=== PATIENT | female | born 2000 | race African-American/Black ===

== ENCOUNTER 2020-02-20 22:06 | Emergency (ER) | payer OTHER, SELFPAY ==
[2020-02-20 22:25] VITALS: BP 128/82; PULSE 87; RESP 18; TEMP 36.9; O2SAT 97; BMI 38.0
--- NOTE | 2020-02-20 22:39 | PC.NURSE ---
PT HERE WITH LUMP UNDER CHIN ? SWOLLEN LYMPH NODE. [place] REPORTS SOME KIND OF PLATE IN MOUTH AFTER DENTAL EXTRACTION OF WISDOM TOOTH. STATES ITS CUTTING HER GUM.
--- NOTE | 2020-02-20 22:42 | ED.GENADULT ---
HPI - General Adult General Chief complaint: General Medical Stated complaint: chin swelling Time Seen by Provider: 02/20/20 22:42 Source: patient Mode of arrival: ambulatory Limitations: no limitations History of Present Illness HPI narrative: patient noticed small lump under the chin for last 2 days which is tender now no skin discoloration no dental caries patient also complaining of right earache no fever no other lymph node enlarged Related Data Allergies Allergy/AdvReac Type Severity Reaction Status Date / Time ibuprofen [IBUPROFEN] Allergy Intermediate LIP Unverified 11/30/19 19:36 SWELLING shrimp [SHRIMP] Allergy Unknown UNKNOWN Unverified 11/30/19 19:36 Review of Systems Review of Systems: Yes all other systems are reviewed and are negative PMFSH Past Medical History Medical History Asthma Social History Social History Advance Directives: No Advance Directives Information Provided: No Physical Exam Vital Signs: Vital Signs: Last Vital Signs Temp 98.4 F 02/20/20 22:25 Pulse 87 02/20/20 22:25 Resp 18 02/20/20 22:25 BP 128/82 02/20/20 22:25 Pulse Ox 97 02/20/20 22:25 Body Mass Index 38.0 Const: General: cooperative, healthy appearing, comfortable and no acute distress Orientation/consciousness: patient oriented x3 HENMT: Head: Yes normal to inspection Ears: hearing grossly normal bilaterally and TM's normal bilaterally General nose exam: Normal external nose present and Normal nasal mucous membranes and turbinates present Face and sinus: Yes normal facial exam Mouth: Normal oral and palatal mucosa present, lip normal, oropharynx normal and moist mucous membranes Teeth and gingiva: dentition normal and gingiva normal Throat: Yes posterior oropharynx normal Neck: Other: small sub mandibular lymph node enlarged 1x1 cm with normal skin , no signs of infection Resp: Effort & Inspection: normal respiratory effort Neuro: General: patient oriented x3 Discharge Plan Discharge Clinical Impression: Lymphadenopathy, anterior cervical Patient Disposition: Home, Self-Care Instructions: Adenitis (ED) Additional Instructions: take Tylenol for pain. Report to the ER/ PCP if increased redness or increased swelling with pain at this time there is no signs of infection
[2020-02-20] MEDS: Acetaminophen 325 MG TABLET 650 MG PO (23:04)
== END 2020-02-20 23:33 | disposition home or self-care (01) ==
PROVIDERS: Emergency Provider Internal Medicine
DX: L04.0 Acute lymphadenitis of face, head and neck (principal)
CPT/HCPCS: 99283

== ENCOUNTER 2020-06-21 10:16 | Outpatient (REF) | payer OTHER, SELFPAY ==
[2020-06-21 13:33] LABS: CT PCR NOT DETECTED (Not Detect.); NG PCR NOT DETECTED (Not Detect.)
== END 2020-06-21 10:17 | disposition home or self-care (01) ==
LOC: HO.LAB 10:16
PROVIDERS: Visit Provider Advanced Practice Midwife
DX: Z01.419 Encounter for gynecological examination (general) (routine) without abnormal findings (principal); Z11.3 Encounter for screening for infections with a predominantly sexual mode of transmission; Z20.2 Contact with and (suspected) exposure to infections with a predominantly sexual mode of transmission; E66.01 Morbid (severe) obesity due to excess calories; Z68.41 Body mass index [BMI] 40.0-44.9, adult
CPT/HCPCS: 87491; 87591

== ENCOUNTER 2022-07-22 11:35 | Emergency (ER) | payer OTHER, SELFPAY ==
[2022-07-22 12:31] VITALS: BP 128/75; PULSE 88; RESP 18; TEMP 36.6; O2SAT 99; BMI 42.5
--- NOTE | 2022-07-22 12:31 | ED.GENADULT ---
HPI - General Adult General Chief complaint: General Medical Stated complaint: Sore Breasts ? Time Seen by Provider: 07/22/22 13:21 Source: patient Mode of arrival: ambulatory Limitations: no limitations History of Present Illness HPI narrative: 21 yo female presents to the ER for evaluation of bilateral breast soreness that she noticed yesterday. She also reports some mild lower back pain and increased urinary frequency. No dysuria, nausea, vomiting, abdominal pain, vaginal bleeding. LMP 4/5 and she ususally gets it on the 5th of each month. She has not taken a test at home. She has never been before. complaint: bilateral breast soreness Onset (ago): day(s) (1) Location: chest Radiation: non-radiation Severity: moderate Quality: aching Pain Consistency: constant Relieving factors: none Exacerbating factors: none Associated symptoms: other (LBP, urinary frequency) Treatments prior to arrival: none Related Data Previous Rx's Medication Instructions Recorded vitamin with calcium 1 tab PO DAILY #30 tabs 06/21/20 no.72-iron 27 mg-folic acid 1 mg tablet ( Vitamins Plus Low Iron) vit no.95-ferrous 1 tab PO DAILY #30 tabs 07/22/22 fumarate 28 mg-folic acid 800 mcg tablet () Allergies Allergy/AdvReac Type Severity Reaction Status Date / Time ibuprofen [IBUPROFEN] Allergy Intermediate LIP Verified 06/21/20 10:28 SWELLING shrimp [SHRIMP] Allergy Unknown UNKNOWN Verified 06/21/20 10:28 Review of Systems Review of Systems: Yes all other systems are reviewed and are negative PMFSH Past Medical History Medical History Asthma Morbid obesity with body mass index (BMI) of 40.0 to 44.9 in adult (Unknown) Surgical History Hx of wisdom tooth extraction Social History Social History Advance Directives: No Advance Directives Information Provided: Yes Physical Exam ED Vital Signs: Vital Signs - 24 hr 07/22/22 12:31 Temperature 97.9 F Pulse Rate 88 Respiratory Rate 18 Blood Pressure 128/75 Pulse Oximetry 99 Oxygen Delivery Method Room Air BMI result Body Mass Index 42.5 Appearance: Alert. Oriented X3. No acute distress. Head: normocephalic, atraumatic. Neck: Normal inspection. Respiratory: No respiratory distress. normal inspection chest wall Abdomen: Soft and nontender. +BS x4 Skin: Skin warm and dry. Normal skin color. Normal skin turgor. No rashes. Extremities: No lower extremity edema. No joint swelling. Neuro/psych: Oriented X 3. nonfocal CN II-XII intact. Normal speech and cognition. Course Course Course Narrative: RME - 21 yo female presents to the ER for evaluation of sore breasts that started yesterday. She reports some lower back pain. LMP 06/17/22 and reports regular periods. Plan: UA and Upreg Medical Decision Making Medical Decision Making [facility] Narrative: 21 yo female presenting with breast soreness x1 day in the setting of missed period. +Upreg in triage. UA contaminated. VSS. Patient counseled about early . 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 all questions were answered. Differential Diagnosis Differential Diagnoses: The differential diagnosis associated with the presentation includes , UTI, mastitis Lab Data [facility] Lab Attestation statement: I reviewed the patient's lab results. Labs: Lab Results 07/22/22 07/22/22 Range/Units 12:42 12:42 Urine Color Yellow Urine Appearance Cloudy Urine pH 6.5 (5.0-9.0) Ur Specific [place] 1.025 (1.005-1.025) Urine Protein Negative (Neg-Trace) mg/dL Urine Glucose (UA) Negative (Negative) mg/dL Urine Ketones 40 (Negative) mg/dL Urine Blood Negative (Negative) Urine Nitrite Negative (Negative) Ur Leukocyte Esterase Moderate (2+) H (Negative) Urine RBC 0-2 (0-2) /HPF Urine WBC 0-5 (0-5) /HPF Ur Squamous Epith Cells >20 (0-2) /HPF Urine Bacteria 3+ (None Seen) Hyaline Casts 0-2 (0-2) /LPF Urine Test POSITIVE H (NEGATIVE) External Record Review External record reviewed: Prior outpatient labs Prescription Management I considered prescription management with: Other ( vitamin) Chronic Conditions Patient?s care impacted by: Other (obesity) Critical Care Time Critical Care Time Critical Care Time: No Discharge Plan Discharge Clinical Impression: Patient Disposition: Home, Self-Care Instructions: (ED) Additional Instructions: Your urine test showed you are . Call your [employer] to arrange follow up. Start the prescribed vitmain. If you develop new or worsening symptoms call 911 or come back to the ER for further evaluation. Prescriptions: New PNV cmb#95-ferrous fumarate-FA [] 28 mg iron- 800 mcg tablet 1 tab PO DAILY Qty: 30 0RF No Action Vitamin Plus Low Iron 27 mg iron- 1 mg tablet 1 tab PO DAILY Qty: 30 11RF Interventions: ED Discharge Assessment Last Done: 07/22/22 13:22
[2022-07-22 12:59] LABS: Appearance Urine Cloudy; Color Urine Yellow; Glucose Urine UA Negative (Negative); Leukocyte Esterase Urine Moderate (2+) (Negative); Nitrite Urine Negative (Negative); PH 6.5 (5.0-9.0); Specific Gravity - Urine 1.025 (1.005-1.025); UMIC TRIGGER UACC YES; Urine Blood Negative (Negative); Urine Ketones 40 mg/dL (Negative); Urine Protein Negative (Neg-Trace)
[2022-07-22 13:00] LABS: Urine Pregnancy POSITIVE (NEGATIVE)
[2022-07-22 13:01] LABS: UPreg QC Valid YES
[2022-07-22 13:12] LABS: Hyaline Casts Urine 0-2 /LPF (0-2); RBC Urine 0-2 /HPF (0-2); Squamous Epithelial Cell Urine >20 /HPF (0-2); WBC Urine 0-5 /HPF (0-5)
[2022-07-22 13:13] LABS: Bacteria Urine 3+ (None Seen)
== END 2022-07-22 14:17 | disposition home or self-care (01) ==
PROVIDERS: Physician Assistant; Emergency Provider Emergency Medicine Emergency Medical Services
DX: N64.4 Mastodynia (principal); Z33.1 Pregnant state, incidental
CPT/HCPCS: 81001; 81025; 99282

== ENCOUNTER 2022-07-28 10:52 | Outpatient (REF) | payer OTHER, SELFPAY ==
[2022-07-28 11:45] LABS: HCG Quantitative 6579 mIU/mL
== END 2022-07-28 10:53 | disposition home or self-care (01) ==
LOC: HO.LAB 10:52
PROVIDERS: Visit Provider Advanced Practice Midwife
DX: O20.0 Threatened abortion (principal)
CPT/HCPCS: 36415; 84702

== ENCOUNTER 2022-07-28 13:36 | Outpatient (REF) | payer OTHER, SELFPAY ==
--- NOTE | ~2022-07-28 | US_ITS ---
EXAMINATION: US OBSTETRICAL ULTRASOUND CLINICAL INFORMATION: Threatened . Bleeding in first trimester. COMPARISON: None available. LMP: 06/17/2022. Gestational age by maternal dates is 5 weeks 6 days. Estimated date of delivery by maternal dates is 03/24/2022. TECHNIQUE: Transabdominal and transvaginal first trimester OB ultrasound. Transvaginal exam was performed for better visualization of the gestational sac. FINDINGS: The uterus measures 7.9 x 4.2 x 4.6 cm in dimension. There is an intrauterine gestational sac and yolk sac. Sac diameter measures 1 cm which would suggest gestational age of 5 weeks 5 days. No pole is seen. The cervix is normal appearing. The ovaries are normal. The right ovary measures 3.5 x 1.9 x 1.6 cm. Left ovary measures 3.2 x 3.3 x 2.9 cm. There is a small amount of fluid in the pelvis. US/US OB pelvic and transvaginal IMPRESSION: Intrauterine gestational sac and yolk sac. No pole seen. This may be due to early gestational age. Mean sac diameter suggests gestational age of 5 weeks 5 days.
== END 2022-07-28 13:37 | disposition home or self-care (01) ==
LOC: HO.US 13:36
PROVIDERS: Visit Provider Advanced Practice Midwife
DX: O20.0 Threatened abortion (principal)
CPT/HCPCS: 76801; 76817; 81003; 99212

== ENCOUNTER 2022-07-28 15:26 | Outpatient (REF) | payer OTHER, SELFPAY ==
[2022-07-29 08:57] LABS: CT PCR NOT DETECTED (Not Detect.); NG PCR NOT DETECTED (Not Detect.)
[2022-07-29 10:12] LABS: BV Int Neg Control Negative (Negative); BV Int Pos Control Positive (Positive)
== END 2022-07-28 15:27 | disposition home or self-care (01) ==
LOC: HO.LNP 15:26
PROVIDERS: Visit Provider Advanced Practice Midwife
DX: O20.9 Hemorrhage in early pregnancy, unspecified (principal)
CPT/HCPCS: 0353U; 87480; 87510; 87660

== ENCOUNTER 2022-08-04 14:44 | Outpatient (REF) | payer OTHER, SELFPAY | END 2022-08-04 14:45 | disposition home or self-care (01) | LOC: HO.US 14:44 | PROVIDERS: Visit Provider Advanced Practice Midwife | DX: Z13.89 Encounter for screening for other disorder (principal) ==

== ENCOUNTER 2022-08-11 09:21 | Outpatient (REF) | payer OTHER, SELFPAY ==
--- NOTE | ~2022-08-11 | US_ITS ---
EXAMINATION: US OBSTETRICAL ULTRASOUND CLINICAL INFORMATION: Hemorrhage in early . Followup to study of 07/28/2022. COMPARISON: 07/28/2022 LMP: 06/17/2022 Gestational age by maternal dates is 7 weeks 6 days. Estimated date of delivery by maternal dates is 03/24/2023. TECHNIQUE: OB ultrasound, transvaginal. FINDINGS: There is a single intrauterine gestational sac with visible yolk sac, embryo/fetus, and cardiac activity. There is a small amount of echogenic debris seen within the gestational sac of uncertain significance. A small subchorionic hematoma is seen to the right of the gestational sac and is less than 10% of the size of the gestational sac. HR: 150 beats per minute. CRL (crown rump length): 1.02 cm (7 weeks 1 day +/- 4 days). JEANNINE (estimated date of delivery): 03/29/2023 +/- 4 days. MATERNAL ADNEXA: The right maternal ovary measures 3.2 x 1.7 x 1.8 cm. No right adnexal abnormality appreciated. Normal vascular flow. The left maternal ovary measures 2.9 x 2.4 x 2.1 cm. There is a heterogeneous echogenic 1.4 x 1.1 x 1.5 cm structure in the left ovary consistent with corpus luteal cyst. There is no significant maternal adnexal mass. There is a small amount of free fluid seen about the left adnexa. US/US OB pelvic and transvaginal IMPRESSION: 1. Single intrauterine gestation with ultrasound gestational age of 7 weeks 1 day +/- 4 days. 2. Estimated date of delivery is 03/29/2023 +/- 4 days. 3. No suspicious maternal adnexal mass.
== END 2022-08-11 09:22 | disposition home or self-care (01) ==
LOC: HO.US 09:21
PROVIDERS: Visit Provider Advanced Practice Midwife
DX: O20.0 Threatened abortion (principal); O20.9 Hemorrhage in early pregnancy, unspecified
CPT/HCPCS: 76801; 76817

== ENCOUNTER → 2022-08-13 07:55 | Outpatient (BNVA) | payer OTHER, SELFPAY | PROVIDERS: Visit Provider Advanced Practice Midwife ==

== ENCOUNTER 2023-01-19 15:30 | Emergency (ER) | payer OTHER, SELFPAY ==
[2023-01-19 15:38] VITALS: BP 128/77; PULSE 102; RESP 20; TEMP 36.6; O2SAT 98; BMI 38.1
--- NOTE | 2023-01-19 15:38 | ED_ITS ---
HPI - General Adult General Chief complaint: Upper Respiratory Symptoms Stated complaint: ?Larygitis Time Seen by Provider: 01/19/23 16:26 Source: patient Mode of arrival: ambulatory Limitations: no limitations History of Present Illness HPI narrative: Patient is a 22-year-old female presenting to emergency department for evaluation of sore throat, losing voice over the past week. Took an at-home COVID-19 test which was negative. Denies fevers, chills, difficulty swallowing, inability to tolerate oral intake, nausea, vomiting, abdominal pain. Denies any known sick contacts. Related Data Home Medications Medication Instructions Recorded Confirmed metronidazole 500 mg tablet 500 mg PO BID 08/13/22 Previous Rx's Medication Instructions Recorded vit no.95-ferrous 1 tab PO DAILY #30 tabs 07/22/22 fumarate 28 mg-folic acid 800 mcg tablet () penicillin V potassium 500 mg 500 mg PO BID #20 tabs 01/19/23 tablet Allergies Allergy/AdvReac Type Severity Reaction Status Date / Time ibuprofen [IBUPROFEN] Allergy Intermediate LIP Verified 08/13/22 07:56 SWELLING shrimp [SHRIMP] Allergy Unknown UNKNOWN Verified 08/13/22 07:56 Review of Systems Review of Systems: Yes all other systems are reviewed and are negative PMFSH Past Medical History Attestation statement: The following information was validated with the patient. Source: old records reviewed Medical History Bleeding in early Adopted First trimester bleeding Morbid obesity with body mass index (BMI) of 40.0 to 44.9 in adult (Unknown) Asthma Surgical History Hx of wisdom tooth extraction Social History Social History Advance Directives: No Advance Directives Information Provided: No Physical Exam ED Vital Signs: Vital Signs - 24 hr 01/19/23 15:38 Temperature 97.9 F Pulse Rate 102 H Respiratory Rate 20 Blood Pressure 128/77 Pulse Oximetry 98 Oxygen Delivery Method Room Air BMI result Body Mass Index 38.1 Appearance: Alert.?Oriented to person, place and time. No acute distress.?Normal affect. Eyes: Pupils equal, round and reactive to light.? ENT: Pharynx erythematous, white exudates. No tonsillar hypertrophy. Uvula midline. No trismus. No drooling. ? Neck: Normal inspection.? Neck supple.??No cervical lymphadenopathy. CVS: Heart sounds normal. Normal heart rate and rhythm.? Pulses normal.?? Respiratory: No respiratory distress.? Lung sounds clear to auscultation bilaterally?? Abdomen: Soft and non-tender. Normoactive bowel sounds. Skin: Skin warm and dry.? Normal skin color.?? Extremities: No lower extremity edema.? Neuro: Moves all extremities spontaneously. Sensation intact bilaterally. Amb ulates with normal steady gait. Course Course Course Narrative: RME performed by Darlin Mitchell PA-C. Patient is a 22 year old assigned female at presenting to the emergency department after losing her voice. Swabs ordered. Patient placed back in the waiting room pending room availability and results. Medical Decision Making Medical Decision Making [facility] Narrative: Patient is a 22-year-old female with past medical history of asthma, presenting for evaluation of sore throat. Strep a testing is positive; strep pharyngitis laryngitis COVID-19 testing negative. Influenza testing negative. At this time history and physical exam not consistent with peritonsillar retropharyngeal abscess, Thee's angina, pneumonia. Well-appearing, nontoxic, afebrile, no tachycardia or tachypnea/hypoxia. Speaking full sentences, ambulatory with steady gait. Discussed conservative treatment including rest, hydration, Tylenol/ibuprofen as needed for fever and body aches, saline nasal spray, humidifier, [id number] cold medication. Advised to follow-up with primary care provider as needed, discussed reasons to return back to the emergency department. All questions were answered. Patient discharged home in stable condition. Differential Diagnosis Differential Diagnoses: The differential diagnosis associated with the presen tation includes (As noted above) Lab Data [facility] Lab Attestation statement: I reviewed the patient's lab results. (As noted above) Labs: Lab Results 01/19/23 Range/Units 16:04 Influenza Type A (PCR) NEGATIVE (Negative) Influenza Type B (PCR) NEGATIVE (Negative) RSV RNA Qual (PCR) NEGATIVE (Negative) SARS-CoV-2 RNA (RT-PCR) NEGATIVE (Negative) S. pyogenes GrpA MISSY Positive A (Negative) External Record Review External record reviewed: Outpatient record Tests considered The following testing was considered but not selected: Considered CT soft tissue neck to exclude peritonsillar/retropharyngeal abscess, physical examination not consistent, imaging deferred Prescription Management I considered prescription management with: Antibiotic Discharge Plan Discharge Clinical Impression: Acute streptococcal pharyngitis Patient Disposition: Home, Self-Care Instructions: Strep Throat (ED) Prescriptions: New penicillin V potassium 500 mg tablet 500 mg PO BID Qty: 20 0RF No Action PNV cmb#95-ferrous fumarate-FA [] 28 mg iron- 800 mcg tablet 1 tab PO DAILY Qty: 30 0RF metronidazole 500 mg tablet 500 mg PO BID Referrals: ED Physician,Generic [Physician] - Interventions: ED Discharge Assessment Last Done: 01/19/23 16:34 Discharge Date/Time: 01/19/23 16:34
[2023-01-19 16:20] LABS: IDNOW Serial# 08D9AD1C; Strep A Nucleic Acid Positive (Negative)
[2023-01-19 16:52] LABS: Influenza A PCR NEGATIVE (Negative); Influenza B PCR NEGATIVE (Negative); Resp Syncy Virus RNA Qual PCR NEGATIVE (Negative); SARS COV2 PCR INHOUSE NEGATIVE (Negative)
== END 2023-01-19 16:34 | disposition home or self-care (01) ==
PROVIDERS: Physician Assistant Medical; Emergency Provider Emergency Medicine
DX: J02.0 Streptococcal pharyngitis (principal); Z20.822 Contact with and (suspected) exposure to COVID-19; Z20.828 Contact with and (suspected) exposure to other viral communicable diseases
CPT/HCPCS: 0241U; 87651; 99282; 99283

== ENCOUNTER 2023-02-02 21:08 | Emergency (ER) | payer OTHER, SELFPAY ==
[2023-02-02 22:22] VITALS: BP 135/92; PULSE 80; RESP 20; TEMP 36.4; O2SAT 98; BMI 35.2
[2023-02-03 00:17] VITALS: BP 137/69; PULSE 71; RESP 20; TEMP 36.6; O2SAT 98
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
--- NOTE | 2023-02-03 02:33 | PC.NURSE ---
pt seen by provider, Reviewed discharge instructions with pt, pt verbalized understanding.
== END 2023-02-03 02:30 | disposition home or self-care (01) ==
PROVIDERS: Emergency Provider Emergency Medicine Emergency Medical Services
DX: S39.012A Strain of muscle, fascia and tendon of lower back, initial encounter (principal); V49.9XXA Car occupant (driver) (passenger) injured in unspecified traffic accident, initial encounter; Y93.9 Activity, unspecified; Y92.9 Unspecified place or not applicable; Y99.9 Unspecified external cause status
CPT/HCPCS: 99282; 99284

== ENCOUNTER 2023-04-06 20:08 | Emergency (ER) | payer OTHER, SELFPAY ==
[2023-04-06 20:40] VITALS: BP 127/75; PULSE 81; RESP 18; TEMP 36.1; O2SAT 99; BMI 39.2
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
[2023-04-06 21:22] LABS: UPreg QC Valid YES; Urine Pregnancy NEGATIVE (NEGATIVE)
[2023-04-06 21:23] LABS: Appearance Urine Cloudy; Color Urine Yellow; Glucose Urine UA Negative (Negative); Leukocyte Esterase Urine Moderate (2+) (Negative); Nitrite Urine Negative (Negative); UMIC TRIGGER UACC YES; Urine Blood Negative (Negative); Urine Ketones Negative (Negative); Urine Protein Negative (Neg-Trace)
[2023-04-06 21:28] LABS: Bacteria Urine 4+ (None Seen); Hyaline Casts Urine 0-2 /LPF (0-2); RBC Urine 0-2 /HPF (0-2); UACC Culture Trigger YES
[2023-04-07 01:44] VITALS: BP 134/79; PULSE 74; RESP 18; TEMP 36.4; O2SAT 100
--- NOTE | 2023-04-07 01:44 | PC.NURSE ---
axox4. nad. resp even and unlabored. able to speak full clear sentences. awaiting primary eval by ed provider.
[2023-04-07] MEDS: Nitrofurantoin Monohyd/M-Cryst 100 MG CAPSULE PO (04:31)
== END 2023-04-07 04:39 | disposition home or self-care (01) ==
PROVIDERS: Physician Assistant; Emergency Provider Student in an Organized Health Care Education/Training Program
DX: N39.0 Urinary tract infection, site not specified (principal); M54.50 Low back pain, unspecified
CPT/HCPCS: 81001; 81025; 87086; 99283

== ENCOUNTER 2023-05-17 19:45 | Emergency (ER) | payer OTHER, SELFPAY ==
--- NOTE | ~2023-05-17 | US_ITS ---
EXAMINATION: US OBSTETRICAL ULTRASOUND CLINICAL INFORMATION: lower abdominal pain COMPARISON: Ultrasound obstetrical from 08/11/2022 LMP: 04/12/2023. Gestational age by maternal dates is 5 weeks 0 days. Estimated date of delivery by maternal dates is 01/17/2024. TECHNIQUE: Transabdominal and transvaginal vaginal imaging of the pelvis FINDINGS: There is a single intrauterine gestational sac with visible yolk sac, embryo/fetus, and cardiac activity. There is no significant subchorionic hemorrhage or hematoma. HR: 138 beats per minute. CRL (crown rump length): 0.66 cm (6 weeks 4 days +/- 4 days). JEANNINE (estimated date of delivery): 01/06/2024 +/- 4 days. MATERNAL ADNEXA: The right maternal ovary measures 3.8 x 2.2 x 2.6 cm. Right corpus luteal cyst measuring up to 1.6 cm. The left maternal ovary measures 2.5 x 1.8 x 1.9 cm. There is no significant maternal adnexal mass. No maternal pelvic ascites. US/US OB pelvic and transvaginal IMPRESSION: 1. Single intrauterine gestation with ultrasound gestational age of 6 weeks 4 days +/- 4 days. Estimated gestational age per LMP of 5 weeks 0 days. 2. Estimated date of delivery is 01/06/2024 +/- 4 days per ultrasound. 3. Right corpus luteal cyst.
[2023-05-17 19:51] VITALS: BP 143/83; PULSE 92; RESP 18; TEMP 35.5; O2SAT 100; BMI 40.0
--- NOTE | 2023-05-17 19:52 | ED.PREGNANCY ---
HPI - General Chief complaint: Abdominal Pain Stated complaint: abd pain, Time Seen by Provider: 05/17/23 22:59 Source: patient Mode of arrival: ambulatory Limitations: no limitations History of Present Illness HPI Narrative: Patient is a 22-year-old female G2 T0 L0 presenting to the emergency department for evaluation of suprapubic pain described as a cramping sensation intermittently over the past 3 days. She denies recent fever, chills, nausea, vomiting, back pain/flank pain, abnormal vaginal discharge, vaginal bleeding, dysuria, hematuria. She does admit to urinary frequency which she attributed to her state. She has not had any OB evaluation yet she has an appointment scheduled in 2 days with [facility] women's group. She does report a history of spontaneous last year have 5 months' gestation. Related Data Home Medications Medication Instructions Recorded Confirmed metronidazole 500 mg tablet 500 mg PO BID 08/13/22 Previous Rx's Medication Instructions Recorded vit no.95-ferrous 1 tab PO DAILY #30 tabs 07/22/22 fumarate 28 mg-folic acid 800 mcg tablet () penicillin V potassium 500 mg 500 mg PO BID #20 tabs 01/19/23 tablet nitrofurantoin 100 mg PO Q12H 5 days #10 caps 04/07/23 monohydrate/macrocrystals 100 mg capsule (Macrobid) cefpodoxime 100 mg tablet 100 mg PO BID #14 tabs 05/17/23 Allergies Allergy/AdvReac Type Severity Reaction Status Date / Time ibuprofen [IBUPROFEN] Allergy Intermediate LIP Verified 05/17/23 19:51 SWELLING shrimp [SHRIMP] Allergy Unknown UNKNOWN Verified 05/17/23 19:51 Review of Systems Review of Systems: Yes all other systems are reviewed and are negative [facility] Past Medical History Attestation statement: The following information was validated with the patient. Source: old records reviewed Medical History Bleeding in early Adopted First trimester bleeding Morbid obesity with body mass index (BMI) of 40.0 to 44.9 in adult (Unknown) Asthma Surgical History Hx of wisdom tooth extraction Social History Social History Smoked in Last 30 Days: No Use of substances other than those prescribed or required for medical reasons: No Advance Directives: No Advance Directives Information Provided: No Patient : Yes Physical Exam Vital Signs: Vital Signs: Last Vital Signs Temp 97.9 F 05/17/23 22:43 Pulse 83 05/17/23 22:43 Resp 16 05/17/23 22:43 BP 129/63 05/17/23 22:43 Pulse Ox 98 05/17/23 22:43 O2 Del Method Room Air 05/17/23 22:43 BMI result Body Mass Index 40.0 Appearance: Alert.?Oriented to person, place and time. No acute distress.?Normal affect. Eyes: Pupils equal, round and reactive to light.? ENT: Pharynx normal.?? Neck: Normal inspection.? Neck supple.?? CVS: Heart sounds normal. Normal heart rate and rhythm.? Pulses normal.?? Respiratory: No respiratory distress.? Lung sounds clear to auscultation bilaterally?? Abdomen: Soft and non-tender. Normoactive bowel sounds. No CVA tenderness. No pulsatile mass.?? Skin: Skin warm and dry.? Normal skin color.? Extremities: No lower extremity edema.? Neuro: Moves all extremities spontaneously. Sensation intact bilaterally. CN II-XII intact. No focal neuro deficits. Ambulates with normal steady gait. Course Course Course Narrative: RME- 19:52pm 22-year-old female who recently tested positive for who is [id number] LMP end of Mar presenting to the ER with complaints of suprapubic abdominal cramping over the past 3 days. She reports her last year she had a miscarriage at 5 months. She is a high-risk . She is going to be seen at [facility]. She denies any other symptoms related to this. Has not had any ultrasounds or labs to confirm intrauterine only a urine test. Plan: Labs, UA Ob pelvic/transvaginal ultrasound. Patient will be sent back to the waiting room to be evaluated the ED. Medical Decision Making Medical Decision Making MDM Narrative: Patient is a 22-year-old female who presents to the emergency department for evaluation of abdominal pain in the setting of recent positive testing as per HPI. Ultrasound obtained revealing single IUP as noted below, consistent with ectopic . Abdominal examination was benign, low suspicion for acute abdomen. Urinalysis with 3+ leukocyte esterase, 4+ urine bacteria in addition to present squamous epithelial cells, concern for true urinary tract infection versus urogenital contamination however given she is currently , has leukocytosis, in urinary frequency which may be a symptom of her however will treat with cefpodoxime and advised outpatient follow-up with her OB. Discussed strict return precautions. All questions answered. Stable for discharge. Differential Diagnosis Differential Diagnoses: The differential diagnosis associated with the presentation includes (See narrative above) Admission/Observation Consideration of admission/observation: Escalation of care including admission/observation considered Lab Data MDM Lab Attestation statement: I reviewed the patient's lab results. CBC reveals leukocytosis of 16.8, CMP without electrolyte abnormality, EMILY, elevated transaminases. Urinalysis with 3+ leukocyte esterase, 4+ urine bacteria in addition to present squamous epithelial cells 05/17/23 20:15 05/17/23 20:15 Labs: Lab Results 05/17/23 Range/Units 20:15 WBC 16.8 H (4.8-10.8) X10*3/uL RBC 4.36 (4.20-5.50) X10*6/uL Hgb 13.6 (12.0-16.0) g/dl Hct 39.4 (37.0-47.0) % MCV 90.4 (80.0-98.0) fL MCH 31.2 (27.0-33.0) pg MCHC 34.5 (31.0-35.0) g/dl RDW 12.9 (11.0-16.0) % Plt Count 288 (160-400) X10*3/uL MPV 10.0 (9.4-12.3) fL Immature Gran % (Auto) 0.4 (0.0-0.4) % Neut % (Auto) 72.7 (45-73) % Lymph % (Auto) 18.7 L (20-40) % [place] % (Auto) 6.3 (2-11) % Eos % (Auto) 1.5 (0-4) % Baso % (Auto) 0.4 (0-2) % Lymph # (Auto) 3.1 (1.2-4.9) X10*3/uL [place] # (Auto) 1.1 (0.1-1.2) X10*3/uL Eos # (Auto) 0.3 (0.0-0.4) X10*3/uL Baso # (Auto) 0.1 (0.0-0.2) X10*3/uL Abs Immat Gran (auto) 0.06 H (0.00-0.03) X10*3/uL Absolute Neuts (auto) 12.2 H (2.0-8.3) x10*3/uL Absolute Nucleated RBC 0.000 (0.0-0.012) X10*3/uL Nucleated RBC % (auto) 0.0 (0.0-0.2) /100WBC Sodium 139 (135-145) mmol/L Potassium 3.8 (3.3-5.1) mmol/L Chloride 106 (96-108) mmol/L Carbon Dioxide 26 (22-29) mmol/L Anion Gap 11 L (12-20) BUN 13 (9-16) mg/dL Creatinine 0.78 (0.5-1.4) mg/dL Estim Creat Clear Calc 128.3 Estimated GFR > 60 Random Glucose 75 (60-115) mg/dL Calcium 9.5 (8.4-10.2) mg/dL Magnesium 1.8 (1.6-2.6) mg/dL Total Bilirubin 0.2 (0.0-1.0) mg/dL AST 17 (5-31) U/L ALT 21 (0-31) U/L Alkaline Phosphatase 64 (39-117) U/L Total Protein 7.1 (6.5-8.0) g/dL Albumin 4.0 (3.5-5.0) g/dL Beta HCG, Quant 25195 mIU/mL Urine Color Yellow Urine Appearance Turbid Urine pH 8.0 (5.0-9.0) Ur Specific [place] 1.020 (1.005-1.025) Urine Protein Negative (Neg-Trace) mg/dL Urine Glucose (UA) Negative (Negative) mg/dL Urine Ketones Negative (Negative) mg/dL Urine Blood Negative (Negative) Urine Nitrite Negative (Negative) Ur Leukocyte Esterase Large (3+) H (Negative) Urine RBC 0-2 (0-2) /HPF Urine WBC 0-5 (0-5) /HPF Ur Squamous Epith Cells 11-20 (0-2) /HPF Urine Bacteria 4+ (None Seen) Hyaline Casts 0-2 (0-2) /LPF Urine Test POSITIVE H (NEGATIVE) Radiology Impression Discussion of test interpretation with radiology: I have reviewed the radiologist's reading. Radiologist Impression: US/US OB pelvic and transvaginal IMPRESSION: 1. Single intrauterine gestation with ultrasound gestational age of 6 weeks 4 days +/- 4 days. Estimated gestational age per LMP of 5 weeks 0 days. 2. Estimated date of delivery is 01/06/2024 +/- 4 days per ultrasound. 3. Right corpus luteal cyst. Independent Historian Clinical information obtained from an independent historian. History obtained from or confirmed by: Spouse (Present who confirms history) Tests considered The following testing was considered but not selected: See narrative above Prescription Management I considered prescription management with: Antibiotic Discharge Plan Discharge Clinical Impression: Urinary tract infection Patient Disposition: Home, Self-Care Instructions: Urinary Tract Infection in (ED) Additional Instructions: Your ultrasound today estimates that UR approximately 6 weeks 4 days with an estimated due date of 01/06/2024 this does conflicts slightly when compared to your date of her last menstrual period. Follow-up with your OB doctor as scheduled in discussed with them further regarding your due date. Complete the entire course of antibiotics as prescribed. Be sure you are staying well hydrated, drinking plenty of fluids. You may take Tylenol as needed for pain during . It is important that you do not take ibuprofen/Motrin/Advil/Aleve/naproxen/aspirin while . Prescriptions: New cefpodoxime 100 mg tablet 100 mg PO BID Qty: 14 0RF Rx Instructions: must administer with a meal/food No Action PNV cmb#95-ferrous fumarate-FA [] 28 mg iron- 800 mcg tablet 1 tab PO DAILY Qty: 30 0RF penicillin V potassium 500 mg tablet 500 mg PO BID Qty: 20 0RF nitrofurantoin monohyd/m-cryst [Macrobid] 100 mg capsule 100 mg PO Q12H 5 Days Qty: 10 0RF Rx Instructions: must administer with a meal/food metronidazole 500 mg tablet 500 mg PO BID Referrals: Physician,Unknown J [Primary Care Provider] -
--- NOTE | 2023-05-17 20:16 | MHC.EDTECH ---
Patient brought into triage area,labs,and urine obtained and sent to lab.
[2023-05-17 20:21] LABS: MANUAL DIFF FLAG NO
[2023-05-17 20:25] LABS: Appearance Urine Turbid; Basophils Absolute Auto 0.1 X10*3/uL (0.0-0.2); Basophils Percent Auto 0.4 % (0-2); Color Urine Yellow; Eosinophils Absolute Auto 0.3 X10*3/uL (0.0-0.4); Eosinophils Percent Auto 1.5 % (0-4); Glucose Urine UA Negative (Negative); Hematocrit 39.4 % (37.0-47.0); Hemoglobin 13.6 g/dl (12.0-16.0); Imm Gran Abs Auto 0.06 X10*3/uL (0.00-0.03); Imm Gran Pct Auto 0.4 % (0.0-0.4); Leukocyte Esterase Urine Large (3+) (Negative); Lymphocytes Absolute Auto 3.1 X10*3/uL (1.2-4.9); Lymphocytes Percent Auto 18.7 % (20-40); Mean Corpuscular HGB Conc 34.5 g/dl (31.0-35.0); Mean Corpuscular Hemoglobin 31.2 pg (27.0-33.0); Mean Corpuscular Volume 90.4 fL (80.0-98.0); Monocytes Absolute Auto 1.1 X10*3/uL (0.1-1.2); Monocytes Percent Auto 6.3 % (2-11); Neutrophils Absolute Auto 12.2 x10*3/uL (2.0-8.3); Neutrophils Percent Auto 72.7 % (45-73); Nitrite Urine Negative (Negative); Platelet Count 288 X10*3/uL (160-400); Red Blood Count 4.36 X10*6/uL (4.20-5.50); Red Cell Distribution Width 12.9 % (11.0-16.0); UMIC TRIGGER UACC YES; Urine Blood Negative (Negative); Urine Ketones Negative (Negative); Urine Protein Negative (Neg-Trace); White Blood Count 16.8 X10*3/uL (4.8-10.8)
[2023-05-17 20:26] LABS: UPreg QC Valid YES; Urine Pregnancy POSITIVE (NEGATIVE)
[2023-05-17 20:33] LABS: Bacteria Urine 4+ (None Seen); Hyaline Casts Urine 0-2 /LPF (0-2); RBC Urine 0-2 /HPF (0-2); UACC Culture Trigger YES; WBC Urine 0-5 /HPF (0-5)
[2023-05-17 20:43] LABS: Alanine Aminotransferase 21 U/L (0-31); Alkaline Phosphatase 64 U/L (39-117); Anion Gap 11 (12-20); Aspartate Amino Transferase 17 U/L (5-31); Bilirubin Total 0.2 mg/dL (0.0-1.0); Blood Urea Nitrogen 13 mg/dL (9-16); Calcium 9.5 mg/dL (8.4-10.2); Carbon Dioxide 26 mmol/L (22-29); Chloride 106 mmol/L (96-108); Creatinine Clr Calc Pharmacy 128.3; Estimated Glomerular Filt Rate > 60; Glucose Random 75 mg/dL (60-115); Magnesium 1.8 mg/dL (1.6-2.6); Potassium 3.8 mmol/L (3.3-5.1); Sodium 139 mmol/L (135-145); Total Protein 7.1 g/dL (6.5-8.0)
[2023-05-17 21:04] LABS: HCG Quantitative 60963 mIU/mL
[2023-05-17 22:43] VITALS: BP 129/63; PULSE 83; RESP 16; TEMP 36.6; O2SAT 98
== END 2023-05-18 00:36 | disposition home or self-care (01) ==
PROVIDERS: Physician Assistant Medical; Emergency Provider Emergency Medicine Emergency Medical Services
DX: O23.41 Unspecified infection of urinary tract in pregnancy, first trimester (principal); N39.0 Urinary tract infection, site not specified; O09.291 Supervision of pregnancy with other poor reproductive or obstetric history, first trimester; Z3A.01 Less than 8 weeks gestation of pregnancy
CPT/HCPCS: 36415; 76801; 76817; 80053; 81001; 81025; 83735; 84702; 85025; 87086; 99284

== ENCOUNTER 2023-08-28 23:34 | Emergency (ER) | payer OTHER, SELFPAY ==
[2023-08-28 23:42] VITALS: BP 127/76; PULSE 80; RESP 17; TEMP 36.7; O2SAT 99; BMI 40.7
--- NOTE | 2023-08-29 00:33 | ED_ITS ---
HPI - Female Genitourinary General Chief complaint: Urogenital-Female Stated complaint: Pressure in cervix has stitches, 5 mons . Time Seen by Provider: 08/29/23 00:24 Source: patient Mode of arrival: ambulatory Limitations: no limitations History of Present Illness ED Provider: Dr. Marline Camarillo HPI Narrative: Patient comes to the emergency room complaining of suprapubic pressure discomfort. Patient is at 21 weeks +3 days. Patient states that on August 16, patient had a cervical cerclage done. Patient states that on August 23 she went for a post procedure visit and her cervix was closed. For the last couple of weeks, patient has been doing well, minimal spotting, no bleeding or fluid leakage today. However, patient is starting having a lot of pressure in the cervical area Related Data Home Medications ?Medication ?Instructions ?Recorded ?Confirmed metronidazole 500 mg tablet 500 mg PO BID 08/13/22 Previous Rx's ?Medication ?Instructions ?Recorded vit no.95-ferrous 1 tab PO DAILY #30 tabs 07/22/22 fumarate 28 mg-folic acid 800 mcg tablet () penicillin V potassium 500 mg 500 mg PO BID #20 tabs 01/19/23 tablet nitrofurantoin 100 mg PO Q12H 5 days #10 caps 04/07/23 monohydrate/macrocrystals 100 mg capsule (Macrobid) cefpodoxime 100 mg tablet 100 mg PO BID #14 tabs 05/17/23 Allergies Allergy/AdvReac Type Severity Reaction Status Date / Time ibuprofen [IBUPROFEN] Allergy Intermediate LIP Verified 08/28/23 23:50 SWELLING shrimp [SHRIMP] Allergy Unknown UNKNOWN Verified 08/28/23 23:50 Review of Systems 2 Review of Systems: Constitutional : No Weight loss, No Fever, No Chills, No Night Sweats, No Fatigue, No Malaise ENT/Mouth : No Hearing loss, No Ear Pain, No Nasal Congestion, No Sinus Pain, No Hoarseness, No sore throat, No Rhinorrhea, No Swallowing Difficulty Eyes: No Eye Pain, No Swelling, No Redness, No Foreign Body, No Discharge, No Vision Changes Cardiovascular : No Chest Pain, No SOB, No Dyspnea on Exertion, No Orthopnea, No Edema, No Palpitations Respiratory : No Cough, No Sputum, No Wheezing, No Smoke Exposure, No Dyspnea Gastrointestinal : No Nausea, No Vomiting, No Diarrhea, No Constipation, No abdominal Pain, No Hematochezia, No Melena Genitourinary : Patient complaining of suprapubic pressure No Dysuria, No Urinary Frequency, No Hematuria, No Urinary Incontinence, No Urgency, No Flank Pain, No Urinary Flow Changes, No Hesitancy Musculoskeletal : No joint pain, No Myalgias, No Joint Swelling Skin : No Skin Lesions, No rash Neuro : No Weakness, No Numbness, No Paresthesias, No Loss of Consciousness, No Dizziness, No Headache Psych : No Anxiety/Panic, No Depression, No SI/HI/AH/VH, No Social Issues, Heme/Lymph: No Bruising, No Bleeding,No Lymphadenopathy Endocrine : No Polyuria, No Polydipsia, No Temperature Intolerance PMFSH Past Medical History Medical History Bleeding in early Adopted First trimester bleeding Morbid obesity with body mass index (BMI) of 40.0 to 44.9 in adult (Unknown) Asthma Surgical History Hx of wisdom tooth extraction Social History Social History Advance Directives: No Advance Directives Information Provided: Yes Do you have a plan to hurt others: No Plan Physical Exam 2 Vital Signs: Vital Signs: Last Vital Signs Temp 98.4 F 08/29/23 00:39 Pulse 89 08/29/23 00:39 Resp 18 08/29/23 00:39 BP 140/63 H 08/29/23 00:39 Pulse Ox 100 08/29/23 00:39 O2 Del Method Room Air 08/29/23 00:39 BMI result Body Mass Index 40.7 Const: Other: Appearance: Alert. Oriented X3. No acute distress. Eyes: Pupils equal, round and reactive to light. ENT: Pharynx normal. Neck: Normal inspection. Neck supple. No lymph nodes noted. No crepitus CVS: Normal heart rate and rhythm. Pulses normal. Normal S1 and S2 Respiratory: No respiratory distress. Breath sounds normal. No Wheezing. No rales Abdomen: Soft and nontender. No rigidity. No distention. Bedside ultrasound shows good movement, heart rate in the 140s : Cerclage stitches present, not under tension, no bleeding, cervix is closed, large amount of whitish-yellowish discharge Skin: Skin warm and dry. Normal skin color. Normal skin turgor. Extremities: No lower extremity edema. No Lacerations. No Rash Neuro: Oriented X 3. No motor deficit. No sensory deficit. Moving all extremities. No slurred speech. CN 2 through 12 grossly intact Psych: calm, cooperative, normal affect Course Course Course Narrative: -I discussed the physical exam with the patient, cervix is closed, stitches are present. -there is a large amount of yellowish discharge. Patient states that prior to arrival she inserted progesterone intravaginally -cervical cultures /swabs were obtained -consult with [facility] return call pending Medical Decision Making Medical Decision Making MDM Narrative: At 01:47 I discussed the patient with attending physician at [facility] OBGYN team, I discussed the patient's presentation, cervical exam. At this time, no further interventions to be done. -discussed with the patient that if she experiences any bleeding, fluid leakage, she needs to return to the emergency department. Patient agrees with plan -patient's labs still pending, hematology, chemistry, LFTs and ABO -during the pelvic exam we obtained cultures, those will be pending for the next few days. -if normal and patient remains asymptomatic, patient may be discharged home. -sign out given to my colleage Dr. Harvey Differential Diagnosis Differential Diagnoses: The differential diagnosis associated with the presentation includes (Cervical incompetence, labor, suprapubic pressure) Admission/Observation Consideration of admission/observation: Escalation of care including admission/observation considered (Given patient's history of miscarriages, transfer was considered) Lab Data 08/29/23 01:46 08/29/23 01:46 Labs: Lab Results 08/29/23 Range/Units 01:46 WBC 17.8 H (4.8-10.8) X10*3/uL RBC 4.12 L (4.20-5.50) X10*6/uL Hgb 13.1 (12.0-16.0) g/dl Hct 38.2 (37.0-47.0) % MCV 92.7 (80.0-98.0) fL MCH 31.8 (27.0-33.0) pg MCHC 34.3 (31.0-35.0) g/dl RDW 12.7 (11.0-16.0) % Plt Count 238 (160-400) X10*3/uL MPV 10.4 (9.4-12.3) fL Immature Gran % (Auto) 0.5 H (0.0-0.4) % Neut % (Auto) 73.9 H (45-73) % Lymph % (Auto) 17.2 L (20-40) % [place] % (Auto) 6.6 (2-11) % Eos % (Auto) 1.6 (0-4) % Baso % (Auto) 0.2 (0-2) % Lymph # (Auto) 3.1 (1.2-4.9) X10*3/uL [place] # (Auto) 1.2 (0.1-1.2) X10*3/uL Eos # (Auto) 0.3 (0.0-0.4) X10*3/uL Baso # (Auto) 0.0 (0.0-0.2) X10*3/uL Abs Immat Gran (auto) 0.08 H (0.00-0.03) X10*3/uL Absolute Neuts (auto) 13.1 H (2.0-8.3) x10*3/uL Absolute Nucleated RBC 0.000 (0.0-0.012) X10*3/uL Nucleated RBC % (auto) 0.0 (0.0-0.2) /100WBC Discharge Plan Discharge Clinical Impression: Suprapubic pressure Patient Disposition: Home, Self-Care Instructions: Labor (ED), Pelvic Pain (ED) Additional Instructions: Please follow-up with your primary care physician tomorrow. If you have any worsening or new symptoms, please return to the emergency room or call 911 Prescriptions: No Action PNV cmb#95-ferrous fumarate-FA [] 28 mg iron- 800 mcg tablet 1 tab PO DAILY Qty: 30 0RF penicillin V potassium 500 mg tablet 500 mg PO BID Qty: 20 0RF nitrofurantoin monohyd/m-cryst [Macrobid] 100 mg capsule 100 mg PO Q12H 5 Days Qty: 10 0RF Rx Instructions: must administer with a meal/food cefpodoxime 100 mg tablet 100 mg PO BID Qty: 14 0RF Rx Instructions: must administer with a meal/food metronidazole 500 mg tablet 500 mg PO BID Print Language: Thai
[2023-08-29 00:39] VITALS: BP 140/63; PULSE 89; RESP 18; TEMP 36.9; O2SAT 100
[2023-08-29 01:52] LABS: MANUAL DIFF FLAG NO
[2023-08-29 01:53] LABS: Basophils Percent Auto 0.2 % (0-2); Eosinophils Absolute Auto 0.3 X10*3/uL (0.0-0.4); Eosinophils Percent Auto 1.6 % (0-4); Hematocrit 38.2 % (37.0-47.0); Hemoglobin 13.1 g/dl (12.0-16.0); Imm Gran Abs Auto 0.08 X10*3/uL (0.00-0.03); Imm Gran Pct Auto 0.5 % (0.0-0.4); Lymphocytes Absolute Auto 3.1 X10*3/uL (1.2-4.9); Lymphocytes Percent Auto 17.2 % (20-40); Mean Corpuscular HGB Conc 34.3 g/dl (31.0-35.0); Mean Corpuscular Hemoglobin 31.8 pg (27.0-33.0); Mean Corpuscular Volume 92.7 fL (80.0-98.0); Mean Platelet Volume 10.4 fL (9.4-12.3); Monocytes Absolute Auto 1.2 X10*3/uL (0.1-1.2); Monocytes Percent Auto 6.6 % (2-11); Neutrophils Absolute Auto 13.1 x10*3/uL (2.0-8.3); Neutrophils Percent Auto 73.9 % (45-73); Platelet Count 238 X10*3/uL (160-400); Red Blood Count 4.12 X10*6/uL (4.20-5.50); Red Cell Distribution Width 12.7 % (11.0-16.0); White Blood Count 17.8 X10*3/uL (4.8-10.8)
[2023-08-29 02:09] LABS: Alanine Aminotransferase 27 U/L (0-31); Albumin Level 3.6 g/dL (3.5-5.0); Alkaline Phosphatase 69 U/L (39-117); Anion Gap 13 (12-20); Aspartate Amino Transferase 20 U/L (5-31); Bilirubin Direct < 0.2 mg/dL (0.0-0.5); Bilirubin Total 0.2 mg/dL (0.0-1.0); Blood Urea Nitrogen 11 mg/dL (9-16); Calcium 9.3 mg/dL (8.4-10.2); Carbon Dioxide 22 mmol/L (22-29); Chloride 109 mmol/L (96-108); Creatinine Clr Calc Pharmacy 138.5; Estimated Glomerular Filt Rate > 60; Glucose Random 86 mg/dL (60-115); Potassium 3.7 mmol/L (3.3-5.1); Sodium 140 mmol/L (135-145)
[2023-08-29 02:45] LABS: Appearance Urine Clear; Color Urine Yellow; Glucose Urine UA Negative (Negative); Leukocyte Esterase Urine Small (1+) (Negative); Nitrite Urine Negative (Negative); PH 7.5 (5.0-9.0); UMIC TRIGGER UACC YES; Urine Blood Negative (Negative); Urine Ketones Negative (Negative); Urine Protein Negative (Neg-Trace)
[2023-08-29 03:53] LABS: Bacteria Urine None Seen (None Seen); Hyaline Casts Urine 0-2 /LPF (0-2); RBC Urine 0-2 /HPF (0-2); Squamous Epithelial Cell Urine 0-2 /HPF (0-2); UACC Culture Trigger YES; WBC Urine 0-5 /HPF (0-5)
[2023-08-29 04:00] VITALS: BP 107/78; PULSE 81; RESP 18; TEMP 36.4; O2SAT 100
[2023-08-29 04:38] VITALS: BP 107/78; PULSE 81; RESP 18; TEMP 36.4; O2SAT 100
[2023-08-29 09:39] LABS: Bacterial Vaginosis PCR POSITIVE (Negative); Candida Group PCR NOT DETECTED (Not Detect); Candida glab krusei PCR NOT DETECTED (Not Detect); Trichomonas vaginalis PCR NOT DETECTED (Not Detect)
[2023-08-29 14:25] LABS: CT PCR NOT DETECTED (Not Detect.); NG PCR NOT DETECTED (Not Detect.)
== END 2023-08-29 04:15 | disposition home or self-care (01) ==
PROVIDERS: Emergency Provider Emergency Medicine
DX: O26.892 Other specified pregnancy related conditions, second trimester (principal); R10.2 Pelvic and perineal pain; Z3A.21 21 weeks gestation of pregnancy; Z98.890 Other specified postprocedural states
CPT/HCPCS: 0352U; 0353U; 36415; 80048; 80076; 81001; 85025; 86900; 86901; 87086; 99284

== ENCOUNTER 2023-12-21 08:54 | Emergency (ER) | payer OTHER, SELFPAY ==
[2023-12-21 09:07] VITALS: BP 174/116; PULSE 84; RESP 18; TEMP 36.3; O2SAT 96; BMI 42.9
--- NOTE | 2023-12-21 11:28 | ED_ITS ---
HPI - Female Genitourinary General Chief complaint: Urogenital-Female Stated complaint: Abd pain Time Seen by Provider: 12/21/23 11:27 Source: patient Mode of arrival: ambulatory Limitations: no limitations History of Present Illness ED Provider: Darlin Mitchell PA-C HPI Narrative: 23 yo female with PMH of A2, currently on depo-provera injections for BC, last injection 12/03/23, with recent spotting episodes, here for evaluation of STD/STI's. States that she recently had unprotected intercourse with a previous partner who stated to her post intercourse she might wanna get checked out just in case. like maybe get checked for chlamydia or gonorrhea, i don't know . Denies symptoms related to STI's at current, denies any discomfort, fevers, N/V, change in urination, denies discharge of any kind except the pink tinged spotting (unsure if related to her BC wearing off). Unsure of status mainly because they did not use condoms and she was on the depo-shot . Related Data Home Medications ?Medication ?Instructions ?Recorded ?Confirmed metronidazole 500 mg tablet 500 mg PO BID 08/13/22 Previous Rx's ?Medication ?Instructions ?Recorded vit no.95-ferrous 1 tab PO DAILY #30 tabs 07/22/22 fumarate 28 mg-folic acid 800 mcg tablet () penicillin V potassium 500 mg 500 mg PO BID #20 tabs 01/19/23 tablet nitrofurantoin 100 mg PO Q12H 5 days #10 caps 04/07/23 monohydrate/macrocrystals 100 mg capsule (Macrobid) cefpodoxime 100 mg tablet 100 mg PO BID #14 tabs 05/17/23 doxycycline hyclate 100 mg tablet 100 mg PO BID 7 days #14 tabs 12/21/23 fluconazole 150 mg tablet 150 mg PO Q3D 2 doses #2 tabs 12/21/23 metronidazole 500 mg tablet 500 mg PO BID 7 days #14 tabs 12/21/23 Allergies Allergy/AdvReac Type Severity Reaction Status Date / Time ibuprofen [IBUPROFEN] Allergy Intermediate LIP Verified 12/21/23 09:09 SWELLING shrimp [SHRIMP] Allergy Unknown UNKNOWN Verified 12/21/23 09:09 Review of Systems Constitutional: Constitutional: Reports no additional constitutional complaints, Denies chills, Denies fever(s) and Denies night sweats Eyes: Eyes: Reports no additional eye complaints, Denies blurry vision, Denies change in vision, Denies diplopia, Denies eye discharge, Denies loss of vision and Denies eye pain ENT: Denies dizziness Cardiovascular: Cardiovascular: Reports no additional cardiovascular complaints, Denies chest pain, Denies lightheadedness, Denies Loss of Consciousness and Denies dyspnea Respiratory: Respiratory: Reports no additional respiratory complaints and Denies dyspnea Gastrointestinal: Gastrointestinal: Reports no additional gastrointestinal complaints, Denies abdominal pain, Denies melena, Denies hematochezia, Denies change in bowel habits and Denies change in stool character Genitourinary: Genitourinary: Denies hematuria, Denies urinary frequency, Denies dysuria, Denies urinary incontinence, Denies urinary hesitancy and Denies urinary urgency Musculoskeletal: Musculoskeletal: Reports no additional musculoskeletal complaints, Denies numbness and Denies tingling Neurologic: Denies dizziness, Denies loss of vision, Denies numbness and Denies tingling Psychiatric: Psychiatric: Reports no additional psychiatric complaints Endocrine: Endocrine: Reports no additional endocrine complaints Hematologic/Lymphatic: Hematologic/Lymphatic: Reports no additional hematologic/lymphatic complaints Allergic/Immunologic: Allergic/Immunologic: Reports no additional allergic/immunologic complaints [facility] Past Medical History Attestation statement: The following information was validated with the patient. Source: old records reviewed and nursing notes reviewed Medical History Bleeding in early Adopted First trimester bleeding Morbid obesity with body mass index (BMI) of 40.0 to 44.9 in adult (Unknown) Asthma Surgical History Hx of wisdom tooth extraction Social History Social History Advance Directives: No Physical Exam Vital Signs: Vital Signs: Last Vital Signs Temp 97.4 F 12/21/23 13:55 Pulse 84 12/21/23 13:55 Resp 18 12/21/23 13:55 BP 174/116 H 12/21/23 13:55 Pulse Ox 96 12/21/23 13:55 O2 Del Method Room Air 12/21/23 13:55 BMI result Body Mass Index 42.9 Const: General: cooperative, no acute distress, alert and awake Nutritional Appearance: well nourished Orientation/consciousness: patient oriented x3 Limitations: no limitations HEENT: Head: Yes normal to inspection and Yes atraumatic Ears: hearing grossly normal bilaterally and external ears normal General nose exam: Normal external nose present, no nasal discharge noted and no epistaxis Face and sinus: Yes normal facial exam, No abrasion and No laceration Mouth: Normal oral and palatal mucosa present, no drooling and no muffled voice Eyes: General: appearance normal, both eyes and all related structures Periorbital: periorbital findings normal Eyelids: Yes eyelids normal Conjunctivae: conjunctivae normal Pupils: Equal, round and reactive pupils present EOM: EOMs intact bilaterally Neck: Neck: Yes normal visual inspection, Yes full ROM and Yes no lymphadenopathy Chest: Chest palpation & inspection: normal inspection of the chest Resp: Effort & Inspection: normal respiratory effort and able to speak in complete sentences GI: Inspection: Yes normal to inspection Neuro: General: patient oriented x3 and moves all extremities Cranial nerves: Yes Equal, round and reactive pupils present Cognition (Neuro): normal cognition Extrem: General: Yes normal to inspection, Yes full ROM and Yes capillary refill normal Psych: Appearance: grossly normal Mental Status: mental status grossly normal Affect: normal affect Attitude: cooperative Thought process: Normal thought process present Thought content: Normal thought content present Insight: Good insight present (Psych) Medical Decision Making Medical Decision Making MDM Narrative: Patient is a 23 year old assigned female at with no reported medical history presenting to the emergency department today requesting STD testing. Patient's physical exam was unremarkable. Patient's urine showed a possible UTI but given the patient has no complaints / symptoms, will await to treat until culture report. Patient positive for vaginal yeast and BV. I explained my physical exam findings as well as all test results to the patient. I answered all questions asked by the patient. I stressed the importance of the patient taking her medication as directed (either prescribed or as the over the counter packaging recommends). I stressed the importance of the patient following up with her primary care provider. I stressed the importance of the patient returning to the emergency department immediately if she were to develop any dizziness, shortness of breath, difficulty breathing, chest pain, blurry vision, loss of vision, nausea, vomiting, abdominal pain, fever, chills, back pain, or any other complaints. Patient verbalized agreement and understanding with this treatment plan and discharge. Differential Diagnosis Differential Diagnoses: The differential diagnosis associated with the presentation includes STD screening STD exposure Admission/Observation Consideration of admission/observation: Escalation of care including admission/observation considered Patient would have been admitted to the hospital had her work up had any findings where hospital admission was appropriate and her clinical presentation warranted hospital admission. Lab Data [facility] Lab Attestation statement: I reviewed the patient's lab results. My interpretation of these results are in the [facility] Rationale portion of this note. Labs: Lab Results 12/21/23 12/21/23 12/21/23 Range/Units 10:32 12:59 13:00 Urine Color Yellow Urine Appearance Clear Urine pH 7.0 (5.0-9.0) Ur Specific [place] 1.020 (1.005-1.025) Urine Protein Negative (Neg-Trace) mg/dL Urine Glucose (UA) Negative (Negative) mg/dL Urine Ketones Negative (Negative) mg/dL Urine Blood Moderate (2+) H (Negative) Urine Nitrite Negative (Negative) Ur Leukocyte Esterase Moderate (2+) H (Negative) Urine RBC 0-2 (0-2) /HPF Urine WBC 0-5 (0-5) /HPF Ur Squamous Epith Cells 6-10 (0-2) /HPF Urine Bacteria Trace (None Seen) Hyaline Casts 0-2 (0-2) /LPF Urine Test NEGATIVE (NEGATIVE) Chlam trachomat DNA PCR NOT DETECTED (Not Detect.) N.gonorrhoeae DNA (PCR) NOT DETECTED (Not Detect.) T. vaginalis (PCR) NOT DETECTED (Not Detect) Bact Vaginosis (PCR) POSITIVE A (Negative) C. krusei/glabrata (PCR) NOT DETECTED (Not Detect) Soo group (PCR) DETECTED A (Not Detect) Prescription Management I considered prescription management with: Antibiotic (patient prescribed a prophylactic antibiotic for STD exposure and BV) and Other (patient prescribed an anti fungal for vaginal yeast) Discharge Plan Discharge Clinical Impression: Exposure to STD, Vaginitis, Yeast detected Patient Disposition: Home, Self-Care Instructions: Bacterial Vaginosis (ED), Sexually Transmitted Diseases (ED), Safe Sex Practices (ED), Yeast Infection (ED) Additional Instructions: Follow up with your primary care provider. Return to the emergency department immediately if your symptoms worsen or if you develop any dizziness, shortness of breath, difficulty breathing, chest pain, blurry vision, loss of vision, nausea, vomiting, abdominal pain, fever, chills, back pain, or any other complaints. Prescriptions: New doxycycline hyclate 100 mg tablet 100 mg PO BID 7 Days Qty: 14 0RF fluconazole 150 mg tablet 150 mg PO Q3D Qty: 2 0RF metronidazole 500 mg tablet 500 mg PO BID 7 Days Qty: 14 0RF No Action PNV cmb#95-ferrous fumarate-FA [] 28 mg iron- 800 mcg tablet 1 tab PO DAILY Qty: 30 0RF penicillin V potassium 500 mg tablet 500 mg PO BID Qty: 20 0RF nitrofurantoin monohyd/m-cryst [Macrobid] 100 mg capsule 100 mg PO Q12H 5 Days Qty: 10 0RF Rx Instructions: must administer with a meal/food cefpodoxime 100 mg tablet 100 mg PO BID Qty: 14 0RF Rx Instructions: must administer with a meal/food metronidazole 500 mg tablet 500 mg PO BID Referrals: [facility] [place] Family Medicine [Provider Group] (Call to establish and follow up with a primary care provider. If you already have a primary care provider, please follow up with them.) [facility] [place] Primary Care, Jennifer [Provider Group] (Call to establish and follow up with a primary care provider. If you already have a primary care provider, please follow up with them.) [facility] [place] Primary Care,Caitlyn [Provider Group] (Call to establish and follow up with a primary care provider. If you already have a primary care provider, please follow up with them.) Stand Alone Forms: Work/School Release Interventions: ED Discharge Assessment Last Done: 12/21/23 13:55 Discharge Date/Time: 12/21/23 13:56 Print Language: Citizen Of [place]
[2023-12-21 12:11] LABS: CT PCR NOT DETECTED (Not Detect.); NG PCR NOT DETECTED (Not Detect.)
[2023-12-21 13:12] LABS: Appearance Urine Clear; Color Urine Yellow; Glucose Urine UA Negative (Negative); Leukocyte Esterase Urine Moderate (2+) (Negative); Nitrite Urine Negative (Negative); UMIC TRIGGER UACC YES; Urine Blood Moderate (2+) (Negative); Urine Ketones Negative (Negative); Urine Protein Negative (Neg-Trace)
[2023-12-21 13:12] LABS: UPreg QC Valid YES; Urine Pregnancy NEGATIVE (NEGATIVE)
[2023-12-21 13:37] LABS: Bacteria Urine Trace (None Seen); Hyaline Casts Urine 0-2 /LPF (0-2); RBC Urine 0-2 /HPF (0-2); WBC Urine 0-5 /HPF (0-5)
[2023-12-21 13:55] VITALS: BP 174/116; PULSE 84; RESP 18; TEMP 36.3; O2SAT 96
[2023-12-21 14:10] LABS: Bacterial Vaginosis PCR POSITIVE (Negative); Candida Group PCR DETECTED (Not Detect); Candida glab krusei PCR NOT DETECTED (Not Detect); Trichomonas vaginalis PCR NOT DETECTED (Not Detect)
== END 2023-12-21 13:56 | disposition home or self-care (01) ==
PROVIDERS: Physician Assistant Medical; Emergency Provider Emergency Medicine
DX: N76.0 Acute vaginitis (principal); B37.31 Acute candidiasis of vulva and vagina; Z20.2 Contact with and (suspected) exposure to infections with a predominantly sexual mode of transmission; Z79.899 Other long term (current) drug therapy
CPT/HCPCS: 0352U; 81001; 81025; 87491; 87591; 99282; 99283

== ENCOUNTER 2024-01-29 23:59 | Emergency (ER) | payer OTHER, SELFPAY ==
[2024-01-30 00:20] VITALS: BP 137/80; PULSE 85; RESP 20; TEMP 36.4; O2SAT 99; BMI 42.5
[2024-01-30 00:58] LABS: IDNOW Serial# 08D9AD1C; Strep A Nucleic Acid Negative (Negative)
[2024-01-30 01:11] LABS: Influenza A PCR NEGATIVE (Negative); Influenza B PCR NEGATIVE (Negative); Resp Syncy Virus RNA Qual PCR NEGATIVE (Negative); SARS COV2 PCR INHOUSE NEGATIVE (Negative)
[2024-01-30 02:10] VITALS: BP 128/83; PULSE 77; RESP 16; TEMP 36.8; O2SAT 98
--- NOTE | 2024-01-30 04:13 | ED.GENADULT ---
HPI - General Adult General Chief complaint: General Medical Stated complaint: eye and throat pain Time Seen by Provider: 01/30/24 03:58 Source: patient Mode of arrival: ambulatory Limitations: no limitations History of Present Illness ED Provider: Dr. Marline Camarillo HPI narrative: Patient comes to emergency room complaining of mild sore throat, flu-like symptoms. However, patient states what bothers her the most is her right eye. Patient states that couple of days ago, she got a facial done at home, since then, her right upper eyelid became swollen and very itchy and she has been rubbing her eyes. Patient states that she may have hurt her eye from rubbing so much. Patient denies fever chills. Denies any discharge coming from the eye Related Data Home Medications ?Medication ?Instructions ?Recorded ?Confirmed metronidazole 500 mg tablet 500 mg PO BID 08/13/22 Previous Rx's ?Medication ?Instructions ?Recorded vit no.95-ferrous 1 tab PO DAILY #30 tabs 07/22/22 fumarate 28 mg-folic acid 800 mcg tablet () penicillin V potassium 500 mg 500 mg PO BID #20 tabs 01/19/23 tablet nitrofurantoin 100 mg PO Q12H 5 days #10 caps 04/07/23 monohydrate/macrocrystals 100 mg capsule (Macrobid) cefpodoxime 100 mg tablet 100 mg PO BID #14 tabs 05/17/23 doxycycline hyclate 100 mg tablet 100 mg PO BID 7 days #14 tabs 12/21/23 fluconazole 150 mg tablet 150 mg PO Q3D 2 doses #2 tabs 12/21/23 metronidazole 500 mg tablet 500 mg PO BID 7 days #14 tabs 12/21/23 erythromycin 5 mg/gram (0.5 %) eye 0.5 inch ophthalmic (eye) TID #3.5 01/30/24 ointment grams prednisone 20 mg tablet 20 mg PO DAILY #4 tabs 01/30/24 Allergies Allergy/AdvReac Type Severity Reaction Status Date / Time ibuprofen [IBUPROFEN] Allergy Intermediate LIP Verified 01/30/24 00:20 SWELLING shrimp [SHRIMP] Allergy Unknown UNKNOWN Verified 01/30/24 00:20 Review of Systems Review of Systems: Constitutional : No Weight loss, No Fever, No Chills, No Night Sweats, No Fatigue, No Malaise ENT/Mouth : No Hearing loss, No Ear Pain, complaining of nasal congestion, sore throat, mild rhinorrhea Eyes: Complaining of right eye foreign body sensation, upper eyelid swelling and itchiness Cardiovascular : No Chest Pain, No SOB, No Dyspnea on Exertion, No Orthopnea, No Edema, No Palpitations Respiratory : No Cough, No Sputum, No Wheezing, No Smoke Exposure, No Dyspnea Gastrointestinal : No Nausea, No Vomiting, No Diarrhea, No Constipation, No abdominal Pain, No Hematochezia, No Melena Genitourinary : no irregular bleeding, No Dysuria, No Urinary Frequency, No Hematuria, No Urinary Incontinence, No Urgency, No Flank Pain, No Urinary Flow Changes, No Hesitancy Musculoskeletal : No joint pain, No Myalgias, No Joint Swelling Skin : No Skin Lesions, No rash Neuro : No Weakness, No Numbness, No Paresthesias, No Loss of Consciousness, No Dizziness, No Headache Psych : No Anxiety/Panic, No Depression, No SI/HI/AH/VH, No Social Issues, Heme/Lymph: No Bruising, No Bleeding,No Lymphadenopathy Endocrine : No Polyuria, No Polydipsia, No Temperature Intolerance PMFSH Past Medical History Medical History Bleeding in early Adopted First trimester bleeding Morbid obesity with body mass index (BMI) of 40.0 to 44.9 in adult (Unknown) Asthma Surgical History Hx of wisdom tooth extraction Social History Social History Advance Directives: No Advance Directives Information Provided: No Do you have a plan to hurt others: No Plan Physical Exam ED Vital Signs: Vital Signs - 24 hr 01/30/24 00:20 01/30/24 02:10 Temperature 97.5 F 98.3 F Pulse Rate 85 77 Respiratory Rate 20 16 Blood Pressure 137/80 128/83 Pulse Oximetry 99 98 Oxygen Delivery Method Room Air Room Air BMI result Body Mass Index 42.5 Const Other: Appearance: Alert. Oriented X3. No acute distress. Eyes: Pupils equal, round and reactive to light. Upper eyelid on the right eye is edematous and has small excoriations. The sclera is injected. On fluorescein stain, there is a very small corneal abrasion at the 6 o'clock position. ENT: Pharynx normal. Neck: Normal inspection. Neck supple. No lymph nodes noted. No crepitus CVS: Normal heart rate and rhythm. Pulses normal. Normal S1 and S2 Respiratory: No respiratory distress. Breath sounds normal. No Wheezing. No rales Abdomen: Soft and nontender. No rigidity. No distention. Skin: Skin warm and dry. Normal skin color. Normal skin turgor. Extremities: No lower extremity edema. No Lacerations. No Rash Neuro: Oriented X 3. No motor deficit. No sensory deficit. Moving all extremities. No slurred speech. CN 2 through 12 grossly intact Psych: calm, cooperative, normal affect Medical Decision Making Medical Decision Making MDM Narrative: Patient likely had an allergic reaction to the facial chemicals that she used. Then from scratching patient provoked a small corneal abrasion at the 6 o'clock position of the right ear. -patient was giving p.o. prednisone for the allergic reaction, discussed with the patient to avoid using steroids in the face which may cause discoloration. -also, patient was given a prescription for erythromycin ointment for the small corneal abrasion Lab Data Labs: Lab Results 01/30/24 Range/Units 00:28 Influenza Type A (PCR) NEGATIVE (Negative) Influenza Type B (PCR) NEGATIVE (Negative) RSV RNA Qual (PCR) NEGATIVE (Negative) SARS-CoV-2 RNA (RT-PCR) NEGATIVE (Negative) S. pyogenes GrpA MISSY Negative (Negative) Discharge Plan Discharge Clinical Impression: Allergic eye reaction, Corneal abrasion Patient Disposition: Home, Self-Care Instructions: Corneal Abrasion (ED) Additional Instructions: Please follow-up with your primary care physician tomorrow. If you have any worsening or new symptoms, please return to the emergency room or call 911 Prescriptions: New prednisone 20 mg tablet 20 mg PO DAILY Qty: 4 0RF erythromycin 5 mg/gram (0.5 %) ointment 0.5 inch ophthalmic (eye) TID Qty: 3.5 0RF No Action doxycycline hyclate 100 mg tablet 100 mg PO BID 7 Days Qty: 14 0RF fluconazole 150 mg tablet 150 mg PO Q3D Qty: 2 0RF metronidazole 500 mg tablet 500 mg PO BID 7 Days Qty: 14 0RF PNV cmb#95-ferrous fumarate-FA [] 28 mg iron- 800 mcg tablet 1 tab PO DAILY Qty: 30 0RF penicillin V potassium 500 mg tablet 500 mg PO BID Qty: 20 0RF nitrofurantoin monohyd/m-cryst [Macrobid] 100 mg capsule 100 mg PO Q12H 5 Days Qty: 10 0RF Rx Instructions: must administer with a meal/food cefpodoxime 100 mg tablet 100 mg PO BID Qty: 14 0RF Rx Instructions: must administer with a meal/food metronidazole 500 mg tablet 500 mg PO BID Print Language: Portuguese
[2024-01-30] MEDS: predniSONE 20 MG TABLET PO (04:33)
[2024-01-30] MEDS: Fluorescein Sodium STRIP 1 STRIP EYE-RIGHT (04:34)
[2024-01-30 04:39] VITALS: BP 120/69; PULSE 74; RESP 16; TEMP 36.7; O2SAT 98
== END 2024-01-30 04:40 | disposition home or self-care (01) ==
PROVIDERS: Emergency Provider Emergency Medicine
DX: S05.01XA Injury of conjunctiva and corneal abrasion without foreign body, right eye, initial encounter (principal); J02.9 Acute pharyngitis, unspecified; H57.11 Ocular pain, right eye; X58.XXXA Exposure to other specified factors, initial encounter; Y93.89 Activity, other specified; Y92.89 Other specified places as the place of occurrence of the external cause; Y99.8 Other external cause status; Z79.899 Other long term (current) drug therapy; Z03.818 Encounter for observation for suspected exposure to other biological agents ruled out
CPT/HCPCS: 0241U; 87651; 99283; 99284

== ENCOUNTER → 2024-04-05 10:53 | Outpatient (BNVA) | payer SELFPAY | PROVIDERS: Visit Provider Physician Assistant | DX: Z02.1 Encounter for pre-employment examination (principal) ==